=== PATIENT | female | born 1990 | race Caucasian/White ===

== ENCOUNTER 2017-01-31 16:25 | Observation (INO) | payer OTHER ==
[2017-01-31 16:33] VITALS: BMI 25.3
[2017-01-31] MEDS ORDERED: Sodium Chloride 0.9% 1,000 ML IV STA (17:16)
[2017-01-31] MEDS ORDERED: Iohexol 240 (50 ml) ONE (17:21)
[2017-01-31] MEDS ORDERED: Morphine 2 mg/ml ISec IVP STA (17:24)
--- NOTE | 2017-01-31 17:40 | ED PDOC ---
Arrival/HPI - General Chief Complaint: Abdominal Pain Time Seen by Provider: 01/31/17 16:31 Historian: Patient, Spouse - History of Present Illness Narrative History of Present Illness (Text): 01/31/17 17:15 This 27 yo female who denies pmh presents to this Emergency department complaining of RUQ and Epigastric pain x 17 days. Patient stated pain started on her RUQ. She stated she went to [facility] x 17 days ago. Patient had a negative ultrasound, and elevated LFTs. Patient was Dx. Gastritis, and discharge home. Later, patient stated she went to [facility] for same complain. This time, pain is affecting epigastric, and RUQ. Patient stated she was admitted at [facility] form 01/18/17 to 01/21/17. Patient had a negative Ultrasound, and her liver enzymes had decreased some. Patient was referred to F/U GI due to elevated LFTs, and for Epigastric pain. Patient has been taking Pepcid daily. Patient saw Dr. Isreal Brantley, GI office on 01/28/17. Patient was told to stop Pepcid, and to take Omeprazole instead. Patient was recommended to return to GI office following week to repeat LFTs blood test. However, pain got worse again, so she went back to [facility] on 01/29/2017. At this time, blood test was done, and patient was treated with GI cocktail. She was discharged home to continue with Omeprazole and to f/u GI doctor. Patient stated she did not have a CT scan or HIDA scan yet. Patient was not prescribed antiemetic medication, so she has been eating well since onset of symptoms. LMP: NOW Patient denies sob, cp, neck pain, headache, diplopia, urinary symptoms, vaginal discharge, fever, skin rash, recent travel, trauma, recent surgery, or abnormal gait. Time/Duration: Other (see hpi) Quality: Aching Context: Home Past Medical History - Provider Review Nursing Documentation Reviewed: Yes - Infectious Disease Hx of Infectious Diseases: None - Psychiatric Hx Substance Use: No - Anesthesia Hx Anesthesia: No Family/Social History - Physician Review Nursing Documentation Reviewed: Yes Family/Social History: Other (noncontributory) Smoking Status: Never Smoked Hx Alcohol Use: No Hx Substance Use: No Allergies/Home Meds Allergies/Adverse Reactions: Allergies morphine Adverse Reaction (Verified 01/31/17 16:34) NAUSEA Home Medications: Home Meds Medication Instructions Recorded Confirmed Dicyclomine [Bentyl] 1 cap PO QID 01/31/17 01/31/17 Sucralfate [Carafate] 1 g PO Q8H PRN 01/31/17 01/31/17 Review of Systems - Review of Systems Constitutional: Fatigue. absent: Weight Change, Fevers Eyes: Normal ENT: Normal. absent: Sore Throat Respiratory: Normal. absent: SOB, Cough Cardiovascular: Normal. absent: Chest Pain, Palpitations Gastrointestinal: Abdominal Pain, Nausea, Vomiting. absent: Constipation, Diarrhea Genitourinary Female: Normal. absent: Dysuria, Frequency, Hematuria Musculoskeletal: Normal. absent: Neck Pain Skin: Normal Neurological: Dizziness. absent: Headache, Focal Weakness, Gait Changes, Speech Changes, Facial Droop, Disequilibrium, Seizure Endocrine: Normal Hemo/Lymphatic: Normal Psychiatric: Normal Physical Exam Vital Signs Temp Pulse Resp BP Pulse Ox 01/31/17 19:11 84 18 117/81 98 01/31/17 16:42 97.9 F 82 18 112/76 98 Temperature: Afebrile Blood Pressure: Normal Pulse: Regular Respiratory Rate: Normal Appearance: Positive for: Well-Appearing, Non-Toxic, Comfortable Pain Distress: None Mental Status: Positive for: Alert and Oriented X 3 - Systems Exam Head: Present: Atraumatic, Normocephalic Pupils: Present: PERRL Extroacular Muscles: Present: EOMI Conjunctiva: Present: Normal Mouth: Present: Moist Mucous Membranes Pharnyx: Present: Normal. No: ERYTHEMA, EXUDATE Nose (External): Present: Atraumatic Nose (Internal): Present: Normal Inspection Neck: Present: Normal Range of Motion, Trachea Midline. No: Meningeal Signs, MIDLINE TENDERNESS, Paraspinal Tenderness, Lymphadenopathy Respiratory/Chest: Present: Clear to Auscultation, Good Air Exchange. No: Respiratory Distress, Accessory Muscle Use, Wheezes, Decreased Breath Sounds, Rales, Retracting, Rhonchi, Tachypneic Cardiovascular: Present: Regular Rate and Rhythm, Normal S1, S2. No: Murmurs Abdomen: Present: Tenderness (RUQ and Epigastric abdominal tenderness), Normal Bowel Sounds. No: Distention, Peritoneal Signs, Rebound, Guarding Back: Present: Normal Inspection. No: CVA Tenderness, Midline Tenderness, Paraspinal Tenderness, Pain with Leg Raise Upper Extremity: Present: Normal Inspection, Normal ROM, NORMAL PULSES, Neurovascularly Intact, Capillary Refill < 2s. No: Cyanosis, Edema Lower Extremity: Present: Normal Inspection, NORMAL PULSES, Normal ROM, Neurovascularly Intact, Capillary Refill < 2 s. No: Edema, CALF TENDERNESS Neurological: Present: GCS=15, CN II-XII Intact, Speech Normal, Motor Func Grossly Intact, Normal Sensory Function, Normal Cerebellar Funct, Gait Normal, Memory Normal Skin: Present: Warm, Dry, Normal Color. No: Rashes Psychiatric: Present: Alert, Oriented x 3, Normal Insight, Normal Concentration Medical Decision Making ED Course and Treatment: 01/31/17 21:37 Re-evaluation. Patient feels better, but still with symptoms. Discussed results and plan to admit with patient who expresses understanding. All questions answered and there is agreement with the plan 01/31/17 21:[address] Gerard, medical supply technician regarding history, labs, physical exam , imaging results. She stated Dr. French is next for admission service. 01/31/17 22:[address] French house doctor regarding patient history, multiple visit for same complain to different hospital, elevated LFTs, Urinalysis, reviewed CT scan and U/S result, which describes sludge in GB, mild Ileus, and partial small bowel obstruction. I told Dr. French, may has not a HIDA scan yet as per patient. Dr. French agrees with plan for observation. Re-evaluation Time: 21:37 Reassessment Condition: Re-examined, Improving,but remains with symptoms - Lab Interpretations Lab Results: 01/31/17 17:30 01/31/17 17:30 Lab Results 01/31/17 17:30: Sodium 138, Potassium 3.9, Chloride 102, Carbon Dioxide 26, Anion Gap 14, BUN 9, Creatinine 0.6 L, Est GFR ( Amer) > 60, Est GFR (Non -Af Amer) > 60, Random Glucose 83, Calcium 9.7, Total Bilirubin 1.9 H, AST 78 H , ALT 186 H, Alkaline Phosphatase 87, Total Protein 8.3, Albumin 4.8, Globulin 3.6, Albumin/Globulin Ratio 1.3, Lipase 166 01/31/17 17:30: Urine Color Light yellow, Urine Appearance Sl cloudy, Urine pH 7.5, Ur Specific [place] 1.010, Urine Protein Trace H, Urine Glucose (UA) Negative, Urine Ketones 15 H, Urine Blood Large H, Urine Nitrate Negative, Urine Bilirubin Negative, Urine Urobilinogen 0.2, Ur Leukocyte Esterase Moderate H, Urine RBC 2 - 5, Urine WBC 2 - 5, Ur Epithelial Cells 6 - 8, Urine Bacteria Few, Urine HCG, Qual Negative 01/31/17 17:30: WBC 7.7, RBC 3.94, Hgb 10.8 L, Hct 33.5 L, MCV 85.0, MCH 27.4, MCHC 32.2, RDW 13.4, Plt Count 308, MPV 10.7, Gran % 60.6, Lymph % (Auto) 33.4, [place] % (Auto) 5.3, Eos % (Auto) 0.4 L, Baso % (Auto) 0.3, Gran # 4.67, Lymph # 2.6, [place] # 0.4, Eos # 0.0, Baso # 0.02 I have reviewed the lab results: Yes Interpretation: Abnormal lab values (elevated LFTs) - RAD Interpretation Narrative RAD Interpretations (Text): 01/31/17 21:36 [facility] Division of Radiology [address] [place] [address] Tel. no. Patient Name: FARIHA CLAROS Pt. Address: [address] [place] [address] Rec #: [id number] [place] [address]: Jelly Pratt PA-C Pt Order Location: ED : 1990 Female Age: 27 Order #: [id number] Reason for exam: RUQ and Epigastric pain CT Scan ABD PELVIS PO IV CONTRAST Exam Date: 01/31/17 This imaging exam was performed at [facility] EXAM: CT Abdomen and Pelvis With Intravenous Contrast EXAM DATE/TIME: 01/31/2017 5:16 PM CLINICAL HISTORY: The patient age is 27 years old and is female; Pain; Abdominal pain; Localized; Right upper quadrant (ruq); Additional info: Ruq and epigastric pain Facility exam id and description: Ct abdpelc abd pelvis po iv contrast TECHNIQUE: Axial computed tomography images of the abdomen and pelvis with intravenous contrast. All CT scans at this facility use one or more dose reduction techniques, viz.: automated exposure control; ma/kV adjustment per patient size (including targeted exams where dose is matched to indication; i.e. head); or iterative reconstruction technique. Coronal and sagittal reformatted images were created and reviewed. CONTRAST: 100 mL of omni administered intravenously. COMPARISON: US - ABDOMEN COMPLETE 2017-01-31 18:28 FINDINGS: Lower thorax: No acute findings. ABDOMEN: Liver: There is low density identified within the medial segment of the left lobe of the liver adjacent to the falciform ligament. This is a common location for fatty infiltration. Otherwise, no hepatic mass is visualized. Gallbladder and bile ducts: No calcified stones. No ductal dilation. Pancreas: Normal contour, without acute peripancreatic stranding. Spleen: No splenomegaly. Adrenals: No mass. Kidneys and ureters: There is mild fullness of the renal collecting systems. No renal masses visualized. Stomach and bowel: Mildly dilated small bowel loops with air contrast levels are seen within the left side of the abdomen. Ileus or partial obstruction is considered. There is significant fecal material within the right hemicolon. Appendix: No findings to suggest acute appendicitis. PELVIS: Bladder: No mass. Reproductive: Posterior to the uterus, there is a loculated cystic collection of fluid measuring 6.1 x 4.9 x 4.7 cm. ABDOMEN and PELVIS: Intraperitoneal space: No free air. Bones/joints: There is a small posterior disc protrusion at L5-S1 with mild to moderate narrowing of the thecal sac. Mild disc bulging is noted at L4-5 with mild narrowing of the thecal sac. There is slight anterior wedging of the T11 vertebral body, consistent with a compression fracture. The acuity of this finding is indeterminate. Vasculature: No abdominal aortic aneurysm. Lymph nodes: No enlarged lymph nodes. IMPRESSION: 1. Posterior to the uterus, there is a loculated cystic collection of fluid measuring 6.1 x 4.9 x 4.7 cm. This can be further evaluated with ultrasound. 2. Mildly dilated small bowel loops with air contrast levels are seen within the left side of the abdomen. Ileus or partial obstruction is considered. 3. There is significant fecal material within the right hemicolon. 4. There is a small posterior disc protrusion at L5-S1 with mild to moderate narrowing of the thecal sac. Mild disc bulging is noted at L4-5 with mild narrowing of the thecal sac. 5. There is slight anterior wedging of the T11 vertebral body, consistent with a compression fracture. The acuity of this finding is indeterminate. Clinical correlation is recommended. 6. Additional CT findings described above. Dictated By: Fabricio Pack MD, MD Dictated Date/Time: 01/31/171951 Signed By: Fabricio Cleary MD Date Signed: 1949 Transcribed By: HERBERT Transcribe Date/Time : 01/31/171951 SHAVONNE/MILLICENT 01/31/17 21:37 [facility] Division of Radiology [address] [place] [address] Tel. no. Patient Name: FARIHA CLAROS Pt. Address: [address] [place] [address] Rec #: [id number] [place] [address]: Jelly Pratt PA-C Pt Order Location: ED : 1990 Female Age: 27 Order #: [id number] Reason for exam: RUQ pain Ultrasound ABDOMEN COMPLETE Exam Date: 01/31/17 This imaging exam was performed at [facility] EXAM: US Abdomen Complete EXAM DATE/TIME: 01/31/2017 6:16 PM CLINICAL HISTORY: The patient age is 27 years old and is female; Pain; Abdominal pain; Flank; Right upper quadrant (ruq); Additional info: q pain Facility exam id and description: Us abd abdomen complete TECHNIQUE: Real-time ultrasound of the abdomen (complete) with image documentation. COMPARISON: No relevant prior studies available. FINDINGS: Liver: The liver measured 12.6 x 2.3 cm. There is normal echotexture of the liver. Gallbladder: Mild isoechoic sludge is seen within the gallbladder. No discrete gallstones are visualized. No discrete gallstones are visualized. There is no significant gallbladder wall thickening. Common bile duct: The common bile duct measures 0.4 cm in diameter, which is within normal limits. Pancreas: There is suboptimal evaluation of the tail of the pancreas due to bowel gas. No focal abnormality is seen within the visualized head or body of the pancreas. Kidneys: The right kidney measures 9.4 x 4.2 x 5.3 cm. The left kidney measures 10.2 x 5.8 x 5.1 cm. No shadowing stones. No hydronephrosis. Spleen: The spleen measures 9.8 x 5.0 cm and is normal in echotexture. Aorta: Limited evaluation. Inferior vena cava: Patent, as visualized. IMPRESSION: 1. Mild isoechoic sludge is seen within the gallbladder. No discrete gallstones are visualized. 2. Additional findings described above. Dictated By: Fabricio Pack MD, MD Dictated Date/Time: 01/31/171958 Signed By: Fabricio Cleary MD Date Signed: 1956 Transcribed By: HERBERT Transcribe Date/Time : 01/31/171958 SHAVONNE/MILLICENT 01/31/17 22:12 Chest x-rays: NAD Radiology Orders: 01/31/17 17:16 ABD PELVIS PO & IV CONTRAST [CT] Stat CHEST PORTABLE [RAD] Stat 01/31/17 18:16 ABDOMEN COMPLETE [US] Stat - Medication Orders Current Medication Orders: Discontinued Medications Famotidine (Pepcid) 20 mg IVP STAT STA Stop: 01/31/17 17:17 Last Admin: 01/31/17 17:40 Dose: 20 mg IVP Administration Document 01/31/17 17:40 IT (Rec: 01/31/17 17:40 IT [id number]) Charges for Administration # of IVP Administrations 1 Sodium Chloride (Sodium Chloride 0.9%) 1,000 mls @ 1,000 mls/hr IV .Q1H STA Stop: 01/31/17 18:15 Last Admin: 01/31/17 17:40 Dose: 1,000 mls/hr eMAR Start Stop Document 01/31/17 17:40 IT (Rec: 01/31/17 17:40 IT [id number]) Intravenous Solution Start Date 01/31/17 Start Time 17:40 End Date 01/31/17 End time 18:40 Total Infusion Time 60 Morphine Sulfate (Morphine) 2 mg IVP STAT STA Stop: 01/31/17 17:25 Last Admin: 01/31/17 17:39 Dose: 2 mg MAR Pain Assessment Document 01/31/17 17:39 IT (Rec: 01/31/17 17:39 IT [id number]) Pain Reassessment Is this a pain reassessment? No Sleep Is patient sleeping during reassessment? No Presence of Pain Presence of Pain Yes Pain Scale Used Pain Scale Used Numeric Location Left, Right or Bilateral Bilateral Upper or Lower Upper Pain Location Body Site Abdomen Description Description Constant Intensity of Pain at present 8 IVP Administration Document 01/31/17 17:39 IT (Rec: 01/31/17 17:39 IT [id number]) Charges for Administration # of IVP Administrations 1 Ondansetron HCl (Zofran Inj) 4 mg IVP STAT STA Stop: 01/31/17 17:17 Last Admin: 01/31/17 17:40 Dose: 4 mg IVP Administration Document 01/31/17 17:40 IT (Rec: 01/31/17 17:40 IT [id number]) Charges for Administration # of IVP Administrations 1 Disposition/Present on Arrival - Present on Arrival Any Indicators Present on Arrival: No History of DVT/PE: No History of Uncontrolled Diabetes: No Urinary Catheter: No History of Decub. Ulcer: No History Surgical Site Infection Following: None - Disposition Have Diagnosis and Disposition been Completed?: Yes Diagnosis: Epigastric abdominal pain, Sludge in gallbladder, Ileus, unspecified, Partial small bowel obstruction Disposition: HOSPITALIZED Disposition Time: 22:14 Patient Plan: Observation Condition: STABLE Referrals: Karson Richard, [Primary Care Provider] - Follow up with primary Forms: [employer] (Serbian)
[2017-01-31 17:52] LABS: ALB/GLOB RATIO 1.3 (1.1-1.8); ALKALINE PHOSPHATASE 87 U/L (38-126); ALT/SGPT 186 U/L (7-56); AST/SGOT 78 U/L (14-36); BILIRUBIN,TOTAL 1.9 mg/dL (0.2-1.3); BLOOD UREA NITROGEN 9 mg/dL (7-21); CALCIUM 9.7 mg/dL (8.4-10.5); CARBON DIOXIDE 26 mmol/L (21-33); CHLORIDE 102 mmol/L (98-107); GFR AFRICAN-AMERICAN > 60; GLUCOSE,RANDOM 83 mg/dL (70-110); LIPASE 166 U/L (23-300); POTASSIUM 3.9 mmol/L (3.6-5.0); SODIUM 138 mmol/L (132-148); TOTAL PROTEIN 8.3 g/dL (5.8-8.3)
[2017-01-31 18:14] LABS: BASO # 0.02 K/mm3 (0.0-2.0); BASO % 0.3 % (0.0-3.0); EOS % 0.4 % (1.5-5.0); GRAN # 4.67 (1.4-6.5); GRAN % 60.6 % (50.0-68.0); HEMATOCRIT 33.5 % (36.0-48.0); LYMPH # 2.6 (1.2-3.4); LYMPH % 33.4 % (22.0-35.0); MEAN CORPUSCULAR HEMOGLOBIN 27.4 pg (25.0-35.0); MEAN CORPUSCULAR HGB CONC 32.2 g/dl (31.0-37.0); MEAN PLATELET VOLUME 10.7 fl (7.0-11.0); MONO # 0.4 (0.1-0.6); MONO % 5.3 % (1.0-6.0); PH,URINE 7.5 (4.7-8.0); RED CELL DISTRIBUTION WIDTH 13.4 % (11.5-14.5); URINE BILIRUBIN NEGATIVE (NEGATIVE); URINE BLOOD LARGE (NEGATIVE); URINE GLUCOSE (UA) NEGATIVE (NEGATIVE); URINE KETONE 15 mg/dL (NEGATIVE); URINE LEUKOCYTE ESTERASE MODERATE Leu/uL (NEGATIVE); URINE PROTEIN TRACE mg/dL (<30 mg/dL); URINE UROBILINOGEN 0.2 E.U./dL (<1 E.U./dL); WHITE BLOOD COUNT 7.7 10^3/ul (4.5-11.0)
[2017-01-31 18:16] LABS: URINE APPEARANCE SL CLOUDY (CLEAR); URINE COLOR LIGHT YELLOW (YELLOW)
[2017-01-31] MEDS ORDERED: Iohexol 350 MG/100 ML VIAL ONE (18:32)
[2017-01-31 18:34] LABS: URINE BACTERIA FEW (NEG)
--- NOTE | 2017-01-31 19:53 | CT ---
EXAM: CT Abdomen and Pelvis With Intravenous Contrast EXAM DATE/TIME: 01/31/2017 5:16 PM CLINICAL HISTORY: The patient age is 27 years old and is female; Pain; Abdominal pain; Localized; Right upper quadrant (ruq); Additional info: Ruq and epigastric pain Facility exam id and description: Ct abdpelc abd pelvis po iv contrast TECHNIQUE: Axial computed tomography images of the abdomen and pelvis with intravenous contrast. All CT scans at this facility use one or more dose reduction techniques, viz.: automated exposure control; ma/kV adjustment per patient size (including targeted exams where dose is matched to indication; i.e. head); or iterative reconstruction technique. Coronal and sagittal reformatted images were created and reviewed. CONTRAST: 100 mL of omni administered intravenously. COMPARISON: US - ABDOMEN COMPLETE 2017-01-31 18:28 FINDINGS: Lower thorax: No acute findings. ABDOMEN: Liver: There is low density identified within the medial segment of the left lobe of the liver adjacent to the falciform ligament. This is a common location for fatty infiltration. Otherwise, no hepatic mass is visualized. Gallbladder and bile ducts: No calcified stones. No ductal dilation. Pancreas: Normal contour, without acute peripancreatic stranding. Spleen: No splenomegaly. Adrenals: No mass. Kidneys and ureters: There is mild fullness of the renal collecting systems. No renal masses visualized. Stomach and bowel: Mildly dilated small bowel loops with air contrast levels are seen within the left side of the abdomen. Ileus or partial obstruction is considered. There is significant fecal material within the right hemicolon. Appendix: No findings to suggest acute appendicitis. PELVIS: Bladder: No mass. Reproductive: Posterior to the uterus, there is a loculated cystic collection of fluid measuring 6.1 x 4.9 x 4.7 cm. ABDOMEN and PELVIS: Intraperitoneal space: No free air. Bones/joints: There is a small posterior disc protrusion at L5-S1 with mild to moderate narrowing of the thecal sac. Mild disc bulging is noted at L4-5 with mild narrowing of the thecal sac. There is slight anterior wedging of the T11 vertebral body, consistent with a compression fracture. The acuity of this finding is indeterminate. Vasculature: No abdominal aortic aneurysm. Lymph nodes: No enlarged lymph nodes. IMPRESSION: 1. Posterior to the uterus, there is a loculated cystic collection of fluid measuring 6.1 x 4.9 x 4.7 cm. This can be further evaluated with ultrasound. 2. Mildly dilated small bowel loops with air contrast levels are seen within the left side of the abdomen. Ileus or partial obstruction is considered. 3. There is significant fecal material within the right hemicolon. 4. There is a small posterior disc protrusion at L5-S1 with mild to moderate narrowing of the thecal sac. Mild disc bulging is noted at L4-5 with mild narrowing of the thecal sac. 5. There is slight anterior wedging of the T11 vertebral body, consistent with a compression fracture. The acuity of this finding is indeterminate. Clinical correlation is recommended. 6. Additional CT findings described above.
--- NOTE | 2017-01-31 20:00 | US ---
EXAM: US Abdomen Complete EXAM DATE/TIME: 01/31/2017 6:16 PM CLINICAL HISTORY: The patient age is 27 years old and is female; Pain; Abdominal pain; Flank; Right upper quadrant (ruq); Additional info: [facility] pain Facility exam id and description: Us abd abdomen complete TECHNIQUE: Real-time ultrasound of the abdomen (complete) with image documentation. COMPARISON: No relevant prior studies available. FINDINGS: Liver: The liver measured 12.6 x 2.3 cm. There is normal echotexture of the liver. Gallbladder: Mild isoechoic sludge is seen within the gallbladder. No discrete gallstones are visualized. No discrete gallstones are visualized. There is no significant gallbladder wall thickening. Common bile duct: The common bile duct measures 0.4 cm in diameter, which is within normal limits. Pancreas: There is suboptimal evaluation of the tail of the pancreas due to bowel gas. No focal abnormality is seen within the visualized head or body of the pancreas. Kidneys: The right kidney measures 9.4 x 4.2 x 5.3 cm. The left kidney measures 10.2 x 5.8 x 5.1 cm. No shadowing stones. No hydronephrosis. Spleen: The spleen measures 9.8 x 5.0 cm and is normal in echotexture. Aorta: Limited evaluation. Inferior vena cava: Patent, as visualized. IMPRESSION: 1. Mild isoechoic sludge is seen within the gallbladder. No discrete gallstones are visualized. 2. Additional findings described above.
--- NOTE | 2017-01-31 22:35 | CP.PCM.HP ---
<Bryanna Castro - Last Filed: 02/01/17 00:59> History of Present Illness - History of Present Illness History of Present Illness: CC: "I'm having abdominal pain" HPI: Patient is a 27 year old female with no significant past medical history presents to the ED for intractable diffuse abdominal pain for approximately 2 1/ 2 weeks. Patient was initially evaluated at [facility] [place] at the end of December. At that time, patient was found to have elevated LFTs and a negative abdominal US. Patient was diagnosed with gastritis and discharged home. Patient was also seen at [facility] [place] [place] for the same complaint on 01/18. Patient followed up with GI outpatient, Dr. Isreal Brantley, who recommended trending LFTs and taking omeprazole. Abdominal pain got worse so she went back to [facility] [place] [place] on 01/29/17 which was the most recent hospitalization. Currently states that the abdominal pain is sharp in nature, constant with varying intensity. Prior to arrival, pain was 9/10. Pain is associated with nausea and NBNB vomiting. States that she has vomited 4-5 times since last night. Last episode of vomiting was prior to arrival. Patient states that she has been having lost of appetite and decreased PO intake. Last ate a yogurt this morning. Admits to constipation, last BM was 2 days ago. Denies sick contacts, fevers, chills, headaches, dizziness, cp, palpitations, sob, urinary symptoms, diarrhea. Allergies: NKDA (morphine - nausea) Medications: Sucrafate, Dicyclomine, Omeprazole Medical Hx: Denies Surgical Hx: Denies Social Hx: Denies alcohol, tobacco, drug use; and lives with , recently immigrated from [place] 05/2016 Family Hx: Mother - healthy; Father - healthy Present on Admission - Present on Admission Any Indicators Present on Admission: No Review of Systems - Constitutional Constitutional: Weight Loss. absent: Chills, Fever, Headache, Increased Appetite - EENT Eyes: absent: Blurred Vision, Change in Vision Ears: absent: Dizziness - Cardiovascular Cardiovascular: absent: Chest Pain, Dyspnea, Lightheadedness, Palpitations - Respiratory Respiratory: absent: Cough, Dyspnea, Wheezing - Gastrointestinal Gastrointestinal: Abdominal Pain, Constipation, Nausea, Vomiting. absent: Diarrhea - Genitourinary Genitourinary: Urinary Frequency. absent: Dysuria, Hematuria - Musculoskeletal Musculoskeletal: absent: Back Pain - Neurological Neurological: absent: Dizziness, Headaches, Weakness Past Patient History - Infectious Disease Hx of Infectious Diseases: None - Past Social History Smoking Status: Never Smoked - PSYCHIATRIC Hx Substance Use: No - SURGICAL HISTORY Hx Surgeries: No - ANESTHESIA Hx Anesthesia: No Meds Allergies/Adverse Reactions: Allergies Allergy/AdvReac Type Severity Reaction Status Date / Time morphine AdvReac NAUSEA Verified 01/31/17 16:34 Physical Exam - Constitutional Appears: Well, No Acute Distress - Head Exam Head Exam: ATRAUMATIC, NORMAL INSPECTION, NORMOCEPHALIC - Eye Exam Eye Exam: EOMI, PERRL, Scleral icterus Pupil Exam: NORMAL ACCOMODATION - ENT Exam ENT Exam: Mucous Membranes Moist - Neck Exam Neck exam: Positive for: Full Rom - Respiratory Exam Respiratory Exam: Clear to Auscultation Bilateral, NORMAL BREATHING PATTERN. absent: Rales, Rhonchi, Wheezes - Cardiovascular Exam Cardiovascular Exam: REGULAR RHYTHM, +S1, +S2 - GI/Abdominal Exam GI & Abdominal Exam: Normal Bowel Sounds, Soft, Tenderness (Mild diffuse tenderness). absent: Guarding, Rebound, Rigid Additional comments: Negative [place] - Extremities Exam Extremities exam: Positive for: normal inspection, pedal pulses present. Negative for: calf tenderness, tenderness - Back Exam Back exam: FULL ROM, NORMAL INSPECTION. absent: CVA tenderness (L), CVA tenderness (R) - Neurological Exam Neurological exam: Alert, Normal Gait, Oriented x3 - Psychiatric Exam Psychiatric exam: Normal Affect, Normal Mood - Skin Skin Exam: Dry, Normal Color, Warm Results - Vital Signs Recent Vital Signs: Last Vital Signs Temp 97.9 F 01/31/17 16:42 Pulse 84 01/31/17 19:11 Resp 18 01/31/17 19:11 BP 117/81 01/31/17 19:11 Pulse Ox 98 01/31/17 19:11 - Labs Result Diagrams: 01/31/17 17:30 01/31/17 17:30 Labs: Laboratory Results - last 24 hr 01/31/17 01/31/17 01/31/17 17:30 17:30 17:30 WBC 7.7 RBC 3.94 Hgb 10.8 L Hct 33.5 L MCV 85.0 MCH 27.4 MCHC 32.2 RDW 13.4 Plt Count 308 MPV 10.7 Gran % 60.6 Lymph % (Auto) 33.4 [place] % (Auto) 5.3 Eos % (Auto) 0.4 L Baso % (Auto) 0.3 Gran # 4.67 Lymph # 2.6 [place] # 0.4 Eos # 0.0 Baso # 0.02 Sodium 138 Potassium 3.9 Chloride 102 Carbon Dioxide 26 Anion Gap 14 BUN 9 Creatinine 0.6 L Est GFR ( Amer) > 60 Est GFR (Non-Af Amer) > 60 Random Glucose 83 Calcium 9.7 Total Bilirubin 1.9 H AST 78 H ALT 186 H Alkaline Phosphatase 87 Total Protein 8.3 Albumin 4.8 Globulin 3.6 Albumin/Globulin Ratio 1.3 Lipase 166 Urine Color Light yellow Urine Appearance Sl cloudy Urine pH 7.5 Ur Specific [place] 1.010 Urine Protein Trace H Urine Glucose (UA) Negative Urine Ketones 15 H Urine Blood Large H Urine Nitrate Negative Urine Bilirubin Negative Urine Urobilinogen 0.2 Ur Leukocyte Esterase Moderate H Urine RBC 2 - 5 Urine WBC 2 - 5 Ur Epithelial Cells 6 - 8 Urine Bacteria Few Urine HCG, Qual Negative Assessment & Plan - Assessment and Plan (Free Text) Assessment: 27 year old female with no significant past medical history presents to the ED for intractable diffuse abdominal pain for approximately 2 1/2 weeks with associated nausea and vomiting since yesterday. Plan: 1. Intractable abdominal pain with nausea/vomiting -Stable, afebrile -Place on observation -Possibly secondary to gastro-duodenal ulcers, gastritis, biliary colic, less likely acute cholecystits -Abdominal US: mild isoechoic gallbladder sludge -CT abd/pelvis: mildly dilated small bowel loops with air contrast levels; no hepatic mass visualized (see full report) -Will order HIDA scan, H pylori workup ordered -Zofran Q4H prn nausea -Pain control: Morphine 2mg q4H prn severe pain, Morphine 1mg q4H prn moderate pain -Diet: Clear liquid diet -GI consulted, f/u recommendations 2. Transaminitis -Denies alcohol use; denies excessive tylenol use -Medical records from [facility] [place] [place] reviewed at the bedside, AST/ALT were as high as 692/ 1025 -Autoimmune workup was negative, hepatitis panel negative -Patient found to have elevated iron saturation -Will repeat iron studies -LFTs are trending down -Avoid hepatotoxic agents -GI consulted, f/u recommendations 3. Constipation -CT showing significant fecal material within right hemicolon -Last BM was 2 days ago -Colace 100 mg BID -Monitor bowel function 4. Urinary Tract Infection -UA showing moderate leuk esterase -F/U urine culture -Will start Rocephin 1mg daily 5. Pelvic Cyst -CT abd/pelvis showed 6.1 x 4.9 x 4.7cm loculated cystic collection -Transvaginal US ordered -Will need outpatient follow up 6. T11 Compression fracture -Incidental finding on CT -Denies having any back pain or focal/neurological deficits -Outpatient follow up GI/DVT ppx -Protonix 40mg IVP -SCDs Plan discussed with Attending, Dr French <Moe French P - Last Filed: 02/01/17 07:00> Results - Vital Signs Recent Vital Signs: Last Vital Signs Temp 98.2 F 02/01/17 00:30 Pulse 88 02/01/17 00:30 Resp 18 02/01/17 00:30 BP 118/78 02/01/17 00:30 Pulse Ox 98 01/31/17 22:50 - Labs Result Diagrams: 01/31/17 17:30 01/31/17 17:30 Attending/Attestation - Attestation I have personally seen and examined this patient.: Yes I have fully participated in the care of the patient.: Yes I have reviewed all pertinent clinical information: Yes Notes (Text): Assessment * Dyspeptic symptoms, of epigastric, abd pain, nausea, vomiting x3 wks, with recent elevated transaminitis (1000-800)with improvement with work up done at [facility] [place], [facility] records printed and kept as hard copy in chart. W/u negative for viral, CMV, EVB, autoimmune hepatitis, elevated iron saturation 66% noted but normal ferretin. * CT abd/pelvis here showing some ileus picture, although pt not distended, pelvic cyst probably incidental, USG here showing some gb sludge but has no gb tenderness Plan * Supportive care * W/u for h pylori * Consider DD of Biliary colic, sphinter of oddi dysfunction, infections hypyli , giardia, parasites, celiac * GI consult for possible in patient vs out patient endoscopy, Hida, h pylori, celiac, pelvic, vaginal usg * See orders for detail
[2017-01-31] MEDS ORDERED: Morphine 2 mg/ml ISec IVP PRN ×2 (23:50→23:51)
[2017-02-01] MEDS: Sodium Chloride 0.9% 1,000 ML IV SCH ×2 (00:07→08:26)
[2017-02-01] MEDS ORDERED: Morphine 5 MG/ML SYRINGE IVP PRN (00:20)
[2017-02-01] MEDS: Morphine 5 MG/ML SYRINGE IVP PRN ×3 (00:24→23:54)
[2017-02-01] MEDS ORDERED: Pneumococcal 23-Valent Vaccine IM ONE (00:48)
[2017-02-01 07:43] LABS: BASO # 0.02 K/mm3 (0.0-2.0); BASO % 0.3 % (0.0-3.0); EOS # 0.1 (0.0-0.7); GRAN # 4.12 (1.4-6.5); GRAN % 52.1 % (50.0-68.0); HEMATOCRIT 30.1 % (36.0-48.0); LYMPH # 3.2 (1.2-3.4); LYMPH % 40.5 % (22.0-35.0); MEAN CELL VOLUME 86.2 fl (80.0-105.0); MEAN CORPUSCULAR HEMOGLOBIN 27.5 pg (25.0-35.0); MEAN CORPUSCULAR HGB CONC 31.9 g/dl (31.0-37.0); MEAN PLATELET VOLUME 11.9 fl (7.0-11.0); MONO # 0.5 (0.1-0.6); MONO % 6.1 % (1.0-6.0); RED CELL DISTRIBUTION WIDTH 13.8 % (11.5-14.5); WHITE BLOOD COUNT 7.9 10^3/ul (4.5-11.0)
[2017-02-01 08:11] LABS: ALB/GLOB RATIO 1.3 (1.1-1.8); ALKALINE PHOSPHATASE 68 U/L (38-126); ALT/SGPT 146 U/L (7-56); AST/SGOT 62 U/L (14-36); BILIRUBIN,TOTAL 1.6 mg/dL (0.2-1.3); BLOOD UREA NITROGEN 7 mg/dL (7-21); CALCIUM 8.3 mg/dL (8.4-10.5); CARBON DIOXIDE 23 mmol/L (21-33); CHLORIDE 108 mmol/L (98-107); GFR AFRICAN-AMERICAN > 60; GLUCOSE,RANDOM 67 mg/dL (70-110); POTASSIUM 3.7 mmol/L (3.6-5.0); SODIUM 138 mmol/L (132-148); TOTAL PROTEIN 6.8 g/dL (5.8-8.3)
[2017-02-01 08:21] LABS: IRON 76 ug/dL (45-180)
--- NOTE | 2017-02-01 08:36 | RAD ---
HISTORY: epigastric pain COMPARISON: No prior. FINDINGS: LUNGS: No active pulmonary disease. PLEURA: No significant pleural effusion identified, no pneumothorax apparent. CARDIOVASCULAR: Normal. OSSEOUS STRUCTURES: No significant abnormalities. VISUALIZED UPPER ABDOMEN: Normal. OTHER FINDINGS: None. IMPRESSION: No active disease.
[2017-02-01] MEDS ORDERED: cefTRIAXone 1 gm 1 GM/100 ML BAG IVPB SCH (10:00)
--- NOTE | 2017-02-01 10:12 | CARD ---
APPROVED REPORT EKG Measurement Heart [id number] VT [id number] [id number] <Conclusion> Normal sinus rhythm Normal ECG
[2017-02-01] MEDS: POLYETHYLENE GLYCOL 3350 17 GM/Dose PACKET PO SCH ×3 (11:46→17:45)
[2017-02-01] MEDS ORDERED: Gadodiamide 287 MG/ML VIAL (15ML) IV ONE (12:37)
--- NOTE | 2017-02-01 13:34 | CP.PCM.PN ---
<Alfonso Jacobo - Last Filed: 02/01/17 14:06> Subjective - Date & Time of Evaluation Date of Evaluation: 02/01/17 Time of Evaluation: 13:20 - Subjective Subjective: Medicine Progress Note: Pt seen and examined at bedside. Pt states that she still feels nauseous, but did not vomit overnight. Pt states that generalized abdominal pain is still present, greatest in the epigastric region. Pt denied CP, SOB, fever, chills, CALDWELL , dizziness, and dysuria. Objective - Vital Signs/Intake and Output Vital Signs (last 24 hours): Temp Pulse Resp BP Pulse Ox 97.8 F 84 20 108/67 98 02/01/17 07:30 02/01/17 07:30 02/01/17 07:30 02/01/17 07:30 02/01/17 07:30 - Medications Medications: Current Medications Famotidine (Pepcid) 20 mg IVP HS [facility] Sodium Chloride (Sodium Chloride 0.9%) 1,000 mls @ 125 mls/hr IV .Q8H [facility] Last Admin: 02/01/17 08:26 Dose: 125 mls/hr Metoclopramide HCl (Reglan) 5 mg IVP ACHS [facility] Last Admin: 02/01/17 11:45 Dose: 5 mg Morphine Sulfate (Morphine) 2 mg IVP Q4H PRN PRN Reason: Pain, severe (8-10) Last Admin: 02/01/17 06:23 Dose: 2 mg Morphine Sulfate (Morphine) 1 mg IVP Q4H PRN PRN Reason: Pain, moderate (4-7) Last Admin: 02/01/17 00:24 Dose: 1 mg Ondansetron HCl (Zofran Inj) 4 mg IVP Q4H PRN PRN Reason: Nausea/Vomiting Last Admin: 02/01/17 07:03 Dose: 4 mg Pantoprazole Sodium (Protonix Inj) 40 mg IVP DAILY [facility] Last Admin: 02/01/17 10:31 Dose: 40 mg Polyethylene Glycol (Miralax) 17 gm PO BID [facility] Last Admin: 02/01/17 11:46 Dose: 17 gm Sucralfate (Carafate Oral Susp) 1 gm PO 0630,1130,1630,2200 [facility] - Head Exam Head Exam: ATRAUMATIC, NORMOCEPHALIC - Eye Exam Eye Exam: EOMI, PERRL - ENT Exam ENT Exam: Mucous Membranes Moist - Neck Exam Neck Exam: Full ROM. absent: Lymphadenopathy, Tenderness, Thyromegaly - Respiratory Exam Respiratory Exam: Clear to Ausculation Bilateral. absent: Decreased Breath Sounds, Rales, Rhonchi, Wheezes, Respiratory Distress - Cardiovascular Exam Cardiovascular Exam: RRR, +S1, +S2. absent: Diastolic murmur, Gallop, Rubs, Murmur - GI/Abdominal Exam GI & Abdominal Exam: Soft, Tenderness (diffuse, greatest in epigastric region). absent: Distended, Firm, Guarding, Mass, Rebound - Extremities Exam Extremities Exam: Normal Inspection - Back Exam Back Exam: NORMAL INSPECTION - Neurological Exam Neurological Exam: Alert, Awake, Oriented x3 - Psychiatric Exam Psychiatric exam: Normal Affect, Normal Mood - Skin Skin Exam: Dry, Intact, Normal Color, Warm Assessment and Plan - Assessment and Plan (Free Text) Assessment: 27 year old female with no significant past medical history presents to the ED for intractable diffuse abdominal pain for approximately 2 1/2 weeks with associated nausea and vomiting since yesterday. Plan: 1. Intractable abdominal pain with nausea/vomiting -Stable, afebrile -Possibly secondary to gastro-duodenal ulcers, gastritis, biliary colic, less likely acute cholecystits -Abdominal US: mild isoechoic gallbladder sludge -CT abd/pelvis: mildly dilated small bowel loops with air contrast levels; no hepatic mass visualized (see full report) -Zofran Q4H prn nausea -Pain control: Morphine 2mg q4H prn severe pain, Morphine 1mg q4H prn moderate pain -NPO, IVF, advance diet as tolerated -F/u H pylori -GI consulted Elevated LFT's possible due to minocycline use PPI, carafate, pepcid F/u MRCP 2. Transaminitis -Denies alcohol use; denies excessive tylenol use -Medical records from [facility] [place] reviewed at the bedside, AST/ALT were as high as 692/ 1025 Autoimmune workup was negative, hepatitis panel negative -Will repeat hepatitis panel -Fe WNL, TIBC low -LFTs are trending down -Avoid hepatotoxic agents -GI consulted, f/u recommendations 3. Constipation -CT showing significant fecal material within right hemicolon -Last BM was 2 days ago -Miralax -Monitor bowel function 4. Pelvic Cyst -CT abd/pelvis showed 6.1 x 4.9 x 4.7cm loculated cystic collection -Transvaginal US ordered -Will need outpatient follow up 5. T11 Compression fracture -Incidental finding on CT -Denies having any back pain or focal/neurological deficits -Outpatient follow up GI/DVT ppx -Protonix -SCDs Pt seen and discussed in detail with Dr. Chatman. Jose Jacobo, PGY1 <Chandana Chatman - Last Filed: 02/01/17 14:50> Objective - Vital Signs/Intake and Output Vital Signs (last 24 hours): Temp Pulse Resp BP Pulse Ox 97.8 F 84 20 108/67 98 02/01/17 07:30 02/01/17 07:30 02/01/17 07:30 02/01/17 07:30 02/01/17 07:30 - Medications Medications: Current Medications Famotidine (Pepcid) 20 mg IVP HS [facility] Sodium Chloride (Sodium Chloride 0.9%) 1,000 mls @ 125 mls/hr IV .Q8H [facility] Last Admin: 02/01/17 08:26 Dose: 125 mls/hr Metoclopramide HCl (Reglan) 5 mg IVP ACHS [facility] Last Admin: 02/01/17 11:45 Dose: 5 mg Morphine Sulfate (Morphine) 2 mg IVP Q4H PRN PRN Reason: Pain, severe (8-10) Last Admin: 02/01/17 06:23 Dose: 2 mg Morphine Sulfate (Morphine) 1 mg IVP Q4H PRN PRN Reason: Pain, moderate (4-7) Last Admin: 02/01/17 00:24 Dose: 1 mg Ondansetron HCl (Zofran Inj) 4 mg IVP Q4H PRN PRN Reason: Nausea/Vomiting Last Admin: 02/01/17 07:03 Dose: 4 mg Pantoprazole Sodium (Protonix Inj) 40 mg IVP DAILY [facility] Last Admin: 02/01/17 10:31 Dose: 40 mg Polyethylene Glycol (Miralax) 17 gm PO BID [facility] Last Admin: 02/01/17 11:46 Dose: 17 gm Sucralfate (Carafate Oral Susp) 1 gm PO 0630,1130,1630,2200 [facility] Attending/Attestation - Attestation I have personally seen and examined this patient.: Yes I have fully participated in the care of the patient.: Yes I have reviewed all pertinent clinical information, including history, physical exam and plan: Yes Notes (Text): 02/01/17 14:44 27 year old female who presented with complaint of abdominal pain with nausea/ vomiting. She reports she had these symptoms for the past 2-3 weeks. Workup at [facility] [place] and [facility] [place] revealed elevated LFTs (~500s-1000s). CT abd/pelvis and US abdomen were reviewed. LFTs are trending down. Case was discussed with GI; suspect drug induced transaminitis +/- gastritis. She is on protonix and pepcid and carafate is also added. Continue with iv fluids and zofran prn. Avoid NSAIDs. MRCP was reviewed. Pelvis sonogram is pending. UA positive for LE however Ucx is negative. Will continue with liquid diet today and advance possibly tomorrow as tolerated. Chandana Chatman MD Hospitalist.
--- NOTE | 2017-02-01 14:10 | MRI ---
PROCEDURE: Magnetic Resonance Cholangiopancreatography HISTORY: Right upper quadrant and epigastric pain COMPARISON: Comparison is made to the previous CT and ultrasound of the abdomen dated 01/31/2017. TECHNIQUE: Multiplanar, multisequence MR images of the abdomen were obtained, including heavily T2 weighted MRCP images of the biliary system. Rotating maximum intensity projection images of the biliary system were generated. FINDINGS: MRCP: The common bile duct is of a normal caliber. No evidence of choledocholithiasis. No intrahepatic biliary ductal dilatation. LIVER: Unremarkable. GALLBLADDER: Unremarkable. SPLEEN: Unremarkable. PANCREAS: Unremarkable. ADRENALS: Unremarkable. KIDNEYS: Unremarkable. AORTA: No aneurysm. ASCITES: None. OTHER FINDINGS: Mild constipation is noted. IMPRESSION: No evidence of cholelithiasis or cholecystitis. No evidence of choledocholithiasis or biliary tree obstruction. No evidence of acute pathology in the upper abdomen. Mild constipation.
--- NOTE | 2017-02-01 15:14 | CP.PCM.CON ---
<Sehrry Lozano - Last Filed: 02/01/17 15:19> History of Present Illness - History of Present Illness History of Present Illness: PGY4 Initial GI Consult Cedric Quach is a 27F w/ no sig medical history who presents to the ER with reports of abdominal pain, nausea, vomiting, and elevated LFTS. was at bedside and helped translate. As per pt and her , she has been having symptoms of abd pain, nausea, vomiting for at at least 3months. She had recently immigrated to [facility] in May. She states that she had no symptoms in [place]. Though she notes that she had intermittent constipation for years. She states that her symptoms started 2 months ago with severe abd pain in epigastric area and sometimes in the lower quadrants B/L. She notes that she eventually [place] [facility] [place] end of [place]. At that time, patient was found to have elevated LFTs and a negative abdominal US. As per labs, ALT > 1000 and AST >700. Patient was diagnosed with gastritis and discharged home. Patient was also seen at [facility] [place] the same complaint on 01/18. Patient followed up with GI outpatient, Dr. Isreal Brantley, who recommended trending LFTs and taking omeprazole. Abdominal pain got worse so she went back to [facility] on 01/29/17 which was the most recent hospitalization. Currently states that the abdominal pain is sharp in nature, constant with varying intensity. Prior to arrival, pain was 9/10. Pain is associated with nausea and NBNB vomiting. States that she has vomited 4-5 times since last night. Last episode of vomiting was prior to arrival. Patient states that she has been having lost of appetite and decreased PO intake. Admits to constipation, last BM was 2 days ago. As per paperwork brought by her , she is Hep Immunized and ANDERSON 1:80 and rest of the autoimmune work up was negative. She reports taking minocycline and Vit A derivative ointment for her acne for 4 weeks in August. Pt was given rocephin x [address] dose [address] ER[address] CT abd revealed sig stool in the right side of the colon and possible retrouterine fluid collection. She was also started on zofran and PPI, but despite this, she is still experiencing nausea, vomiting, and abd pain. Medical Hx: Denies Surgical Hx: Denies Social Hx: Denies alcohol, tobacco, drug use; and lives with , recently immigrated from [place] 05/2016 Family Hx: Mother - healthy; Father - healthy Endoscopy hx: none ROS: 12 point ROS conducted, other than above, otherwise neg. Past Patient History - Infectious Disease Hx of Infectious Diseases: None - Past Social History Smoking Status: Never Smoked - MUSCULOSKELETAL/RHEUMATOLOGICAL Hx Falls: No - PSYCHIATRIC Hx Substance Use: No - SURGICAL HISTORY Hx Surgeries: No - ANESTHESIA Hx Anesthesia: No Meds Allergies/Adverse Reactions: Allergies Allergy/AdvReac Type Severity Reaction Status Date / Time No Known Allergies Allergy Verified 02/01/17 07:43 - Medications Medications: Current Medications Famotidine (Pepcid) 20 mg IVP HS [facility] Sodium Chloride (Sodium Chloride 0.9%) 1,000 mls @ 125 mls/hr IV .Q8H [facility] Last Admin: 02/01/17 08:26 Dose: 125 mls/hr Metoclopramide HCl (Reglan) 5 mg IVP ACHS [facility] Last Admin: 02/01/17 11:45 Dose: 5 mg Morphine Sulfate (Morphine) 2 mg IVP Q4H PRN PRN Reason: Pain, severe (8-10) Last Admin: 02/01/17 06:23 Dose: 2 mg Morphine Sulfate (Morphine) 1 mg IVP Q4H PRN PRN Reason: Pain, moderate (4-7) Last Admin: 02/01/17 00:24 Dose: 1 mg Ondansetron HCl (Zofran Inj) 4 mg IVP Q4H PRN PRN Reason: Nausea/Vomiting Last Admin: 02/01/17 07:03 Dose: 4 mg Pantoprazole Sodium (Protonix Inj) 40 mg IVP DAILY [facility] Last Admin: 02/01/17 10:31 Dose: 40 mg Polyethylene Glycol (Miralax) 17 gm PO BID [facility] Last Admin: 02/01/17 11:46 Dose: 17 gm Sucralfate (Carafate Oral Susp) 1 gm PO 0630,1130,1630,2200 [facility] Physical Exam - Constitutional Appears: In Acute Distress - Head Exam Head Exam: ATRAUMATIC, NORMOCEPHALIC - Eye Exam Eye Exam: Normal appearance - ENT Exam ENT Exam: Mucous Membranes Moist - Respiratory Exam Respiratory Exam: Clear to Auscultation Bilateral, NORMAL BREATHING PATTERN. absent: Rales, Rhonchi, Wheezes, Respiratory Distress - Cardiovascular Exam Cardiovascular Exam: REGULAR RHYTHM, +S1, +S2 - GI/Abdominal Exam GI & Abdominal Exam: Hypoactive Bowel Sounds, Soft, Tenderness. absent: Distended, Guarding, Rebound, Rigid Additional comments: eoigastric and RLQ - Extremities Exam Extremities exam: Negative for: joint swelling, pedal edema - Neurological Exam Neurological exam: Alert, Oriented x3 - Psychiatric Exam Psychiatric exam: Normal Affect, Normal Mood - Skin Skin Exam: Dry, Intact, Normal Color, Warm Results - Vital Signs Recent Vital Signs: Last Vital Signs Temp 97.8 F 02/01/17 07:30 Pulse 84 02/01/17 07:30 Resp 20 02/01/17 07:30 BP 108/67 02/01/17 07:30 Pulse Ox 98 02/01/17 07:30 - Labs Result Diagrams: 02/01/17 07:00 02/01/17 07:00 Assessment & Plan - Assessment and Plan (Free Text) Assessment: Cedric Quach is a 27F w/ hx of intermittent constipation who presents with abdominal pain, nausea, vomiting, and elevated LFTS. Etiology of the epigastric pain can include gastritis vs PUD vs esophagitis. Etiology of the abdominal pain is likely 2/2 constipation. Elevated LFTs are likely 2/2 minocycline, autoimmune and infectous etiologies previously ruled out 1. Abd pain DDx: gastritis vs PUD vs esophagitis vs constipation 2. Elevated LFTs, likely 2/2 prolonged minocyline use 3. Acute on chronic constipation Plan: -start miralax BID -dulcolax PRN -zofran PRN -start reglan TID -start carafate suspension QID -H. Pylori Stool antigen -continue protonix 40mg daily -LFTs trending down as per previous oupt labs -would hold on abx for now -CT abd reviewed -recommend MRCP D/W Dr. Gayle <Cristel Gayle MD - Last Filed: 02/01/17 18:49> Meds - Medications Medications: Current Medications Famotidine (Pepcid) 20 mg IVP HS [facility] Sodium Chloride (Sodium Chloride 0.9%) 1,000 mls @ 125 mls/hr IV .Q8H [facility] Last Admin: 02/01/17 08:26 Dose: 125 mls/hr Metoclopramide HCl (Reglan) 5 mg IVP ACHS [facility] Last Admin: 02/01/17 17:46 Dose: 5 mg Morphine Sulfate (Morphine) 2 mg IVP Q4H PRN PRN Reason: Pain, severe (8-10) Last Admin: 02/01/17 06:23 Dose: 2 mg Morphine Sulfate (Morphine) 1 mg IVP Q4H PRN PRN Reason: Pain, moderate (4-7) Last Admin: 02/01/17 16:01 Dose: 1 mg Ondansetron HCl (Zofran Inj) 4 mg IVP Q4H PRN PRN Reason: Nausea/Vomiting Last Admin: 02/01/17 07:03 Dose: 4 mg Pantoprazole Sodium (Protonix Inj) 40 mg IVP DAILY [facility] Last Admin: 02/01/17 10:31 Dose: 40 mg Polyethylene Glycol (Miralax) 17 gm PO BID [facility] Last Admin: 02/01/17 17:45 Dose: 17 gm Sucralfate (Carafate Oral Susp) 1 gm PO 0630,1130,1630,2200 [facility] Last Admin: 02/01/17 17:46 Dose: 1 gm Results - Vital Signs Recent Vital Signs: Last Vital Signs Temp 97.8 F 02/01/17 07:30 Pulse 84 02/01/17 07:30 Resp 20 02/01/17 07:30 BP 108/67 02/01/17 07:30 Pulse Ox 98 02/01/17 07:30 - Labs Result Diagrams: 02/01/17 07:00 02/01/17 07:00 Attending/Attestation - Attestation I have personally seen and examined this patient.: Yes I have fully participated in the care of the patient.: Yes I have reviewed all pertinent clinical information: Yes Notes (Text): 02/01/17 18:38 Patient seen with GI fellow in am. This is a 27 yr old F with history of intermittent constipation who presents with abdominal pain, nausea, vomiting, and elevated LFTS. She was treated with minocycline po for a month in late summer nad presented to outside hospital with ALT/AST of 1000/800 with increased indirect bilirubin. Her hepatitis serologies and auto immune serologies were negative except ANDERSON + Her LFT are down trending and sonogram shows GB sludge and normal bile ducts. CT scan shows fluid in pelvis for which transvaginal sonogram is pending. Etiology of the epigastric pain can include gastritis vs PUD vs esophagitis. Etiology of the abdominal pain is likely constipation. Will start strict bowel regimen and add PPI in am on empty stomach and carafate. Start prokinetic reglan for nausea. Hold on antibiotics and hepato toxic medications
--- NOTE | 2017-02-01 16:55 | US ---
HISTORY: eval pelvic cyst COMPARISON: None available. TECHNIQUE: Transabdominal ultrasound examination of the pelvis. Patient refused the TV exam. FINDINGS: UTERUS: Measures 7.2 x 2.8 x 3.6 cm. Normal in size and appearance. No fibroid or other mass lesion seen. ENDOMETRIUM: Measures 4 mm in diameter. Unremarkable. CERVIX: No cervical abnormality identified. RIGHT OVARY: Measures 3.4 x 1.4 x 1.7 cm. No solid mass. Normal flow. LEFT OVARY: Measures 6.7 x 4.3 x 5.55 cm. There is a complex cystic lesion at the left adnexa measures 6 x 4 x 5.2 centimeter Normal flow. FREE FLUID: No significant free fluid noted. OTHER FINDINGS: None. IMPRESSION: Complex cystic lesion at the left adnexa measures 6 centimeter. No ultrasound evidence of ovarian torsion. .Close follow-up reassessment of the left adnexal lesion is suggested.
[2017-02-01] MEDS: Sucralfate 1 gm/10 ml Oral Susp UD PO SCH ×2 (17:46→21:18)
[2017-02-02] MEDS: Sucralfate 1 gm/10 ml Oral Susp UD PO SCH ×2 (06:16→12:13)
[2017-02-02] MEDS: Sodium Chloride 0.9% 1,000 ML IV SCH (06:48)
[2017-02-02 07:27] VITALS: BP 106/74; PULSE 74; RESP 20; TEMP 98; O2SAT 98
[2017-02-02 07:45] LABS: BASO # 0.01 K/mm3 (0.0-2.0); BASO % 0.2 % (0.0-3.0); EOS # 0.1 (0.0-0.7); EOS % 1.1 % (1.5-5.0); GRAN # 3.73 (1.4-6.5); GRAN % 58.3 % (50.0-68.0); HEMATOCRIT 30.5 % (36.0-48.0); LYMPH # 2.1 (1.2-3.4); LYMPH % 33.5 % (22.0-35.0); MEAN CELL VOLUME 85.4 fl (80.0-105.0); MEAN CORPUSCULAR HEMOGLOBIN 27.2 pg (25.0-35.0); MEAN CORPUSCULAR HGB CONC 31.8 g/dl (31.0-37.0); MEAN PLATELET VOLUME 10.6 fl (7.0-11.0); MONO # 0.4 (0.1-0.6); MONO % 6.9 % (1.0-6.0); RED CELL DISTRIBUTION WIDTH 13.5 % (11.5-14.5); WHITE BLOOD COUNT 6.4 10^3/ul (4.5-11.0)
[2017-02-02 07:52] LABS: INR 1.18 (0.93-1.08)
[2017-02-02 07:54] LABS: ALB/GLOB RATIO 1.3 (1.1-1.8); ALKALINE PHOSPHATASE 67 U/L (38-126); ALT/SGPT 131 U/L (7-56); AST/SGOT 64 U/L (14-36); BILIRUBIN,TOTAL 1.5 mg/dL (0.2-1.3); BLOOD UREA NITROGEN 5 mg/dL (7-21); CALCIUM 8.3 mg/dL (8.4-10.5); CARBON DIOXIDE 27 mmol/L (21-33); CHLORIDE 107 mmol/L (98-107); GFR AFRICAN-AMERICAN > 60; GLUCOSE,RANDOM 76 mg/dL (70-110); POTASSIUM 3.4 mmol/L (3.6-5.0); SODIUM 140 mmol/L (132-148); TOTAL PROTEIN 6.7 g/dL (5.8-8.3)
[2017-02-02] MEDS ORDERED: Morphine 2 mg/ml ISec IVP PRN (10:25)
[2017-02-02] MEDS: POLYETHYLENE GLYCOL 3350 17 GM/Dose PACKET PO SCH (11:02)
--- NOTE | 2017-02-02 12:44 | CP.PCM.PN ---
<Sherry Lozano - Last Filed: 02/02/17 12:50> Subjective - Date & Time of Evaluation Date of Evaluation: 02/02/17 Time of Evaluation: 06:00 - Subjective Subjective: PGY4 GI Follow-up Pt seen and examined bedside early in the AM She reports sig improvement in abd pain +flatus, but denies any BM She states that she also has interval improvement in epigastric pain Wants to advance her diet ROS: 10 point ROS conducted, neg other than above Objective - Vital Signs/Intake and Output Vital Signs (last 24 hours): Temp Pulse Resp BP Pulse Ox 98.0 F 74 20 106/74 98 02/02/17 07:27 02/02/17 07:27 02/02/17 07:27 02/02/17 07:27 02/02/17 07:27 Intake and Output: 02/02/17 02/02/17 06:59 18:59 Intake Total 1550 Balance 1550 - Medications Medications: Current Medications Famotidine (Pepcid) 20 mg IVP HS [facility] Last Admin: 02/01/17 21:18 Dose: 20 mg Sodium Chloride (Sodium Chloride 0.9%) 1,000 mls @ 125 mls/hr IV .Q8H [facility] Last Admin: 02/02/17 06:48 Dose: 125 mls/hr Metoclopramide HCl (Reglan) 5 mg IVP ACHS [facility] Last Admin: 02/02/17 12:13 Dose: 5 mg Morphine Sulfate (Morphine) 1 mg IVP Q6H PRN PRN Reason: Pain, severe (8-10) Ondansetron HCl (Zofran Inj) 4 mg IVP Q4H PRN PRN Reason: Nausea/Vomiting Last Admin: 02/01/17 07:03 Dose: 4 mg Pantoprazole Sodium (Protonix Inj) 40 mg IVP DAILY [facility] Last Admin: 02/02/17 11:02 Dose: 40 mg Polyethylene Glycol (Miralax) 17 gm PO BID [facility] Last Admin: 02/02/17 11:02 Dose: 17 gm Sucralfate (Carafate Oral Susp) 1 gm PO 0630,1130,1630,2200 [facility] Last Admin: 02/02/17 12:13 Dose: 1 gm - Labs Labs: 02/02/17 07:20 02/02/17 07:20 PT 13.0 SECONDS (9.4-12.5) H 02/02/17 07:20 INR 1.18 (0.93-1.08) H 02/02/17 07:20 - Constitutional Appears: Well, No Acute Distress - Head Exam Head Exam: ATRAUMATIC, NORMOCEPHALIC - Eye Exam Eye Exam: Normal appearance - ENT Exam ENT Exam: Mucous Membranes Moist - Respiratory Exam Respiratory Exam: Clear to Ausculation Bilateral, Respiratory Distress, NORMAL BREATHING PATTERN. absent: Rales, Rhonchi, Wheezes - Cardiovascular Exam Cardiovascular Exam: REGULAR RHYTHM, +S1, +S2 - GI/Abdominal Exam GI & Abdominal Exam: Soft, Normal Bowel Sounds. absent: Firm, Guarding, Rigid, Tenderness, Organomegaly - Extremities Exam Extremities Exam: absent: Joint Swelling, Pedal Edema - Neurological Exam Neurological Exam: Alert, Awake, Oriented x3 - Psychiatric Exam Psychiatric exam: Normal Affect, Normal Mood - Skin Skin Exam: Dry, Intact, Normal Color, Warm Assessment and Plan - Assessment and Plan (Free Text) Assessment: Cedric Quach is a 27F w/ hx of intermittent constipation who presents with abdominal pain, nausea, vomiting, and elevated LFTS. Etiology of the epigastric pain can include gastritis vs PUD vs esophagitis. Etiology of the abdominal pain is likely 2/2 constipation. Elevated LFTs are likely 2/2 minocycline, autoimmune and infectous etiologies previously ruled out 1. Abd pain DDx: gastritis vs PUD vs esophagitis vs constipation 2. Elevated LFTs, likely 2/2 prolonged minocyline use 3. Acute on chronic constipation 4. Complex 6cm ovarian cyst Plan: -continue miralax BID up to TID, recommend continue the as as an outpt can titrate from once daily to TID for at least 1-2 BM daily -dulcolax PRN -Continue reglan TID while inpt -continue carafate suspension QID and as an oupt -H. Pylori Stool antigen, waiting for specimen -continue protonix 40mg BID, can transition to daily Po 40mg Protonix or omeprazole -LFTs trending down as per previous oupt labs, will order addition labs to differential between autoimmune hepatitis vs minocycline inducted autoimmune hepatitis -complex ovarian cyst noted on pelvis U/S, recommend f/u with [facility] as oupt -CT abd reviewed -MRCP reviewed: no avute liver or biliary finding -if symtoms improve today and can tolerate diet, okay to discharge from GI standpoint, pt want to follow-up with Dr. Gayle -if symtoms worsen or continue dispite the above mentioned recommendation, will consider EGD tomorrow D/W [facility]. Gayle <[facility] Last Filed: 02/02/17 15:41> Objective - Vital Signs/Intake and Output Vital Signs (last 24 hours): Temp Pulse Resp BP Pulse Ox 98.0 F 74 20 106/74 98 02/02/17 07:27 02/02/17 07:27 02/02/17 07:27 02/02/17 07:27 02/02/17 07:27 Intake and Output: 02/02/17 02/02/17 06:59 18:59 Intake Total 1550 Balance 1550 - Labs Labs: 02/02/17 07:20 02/02/17 07:20 PT 13.0 SECONDS (9.4-12.5) H 02/02/17 07:20 INR 1.18 (0.93-1.08) H 02/02/17 07:20 Attending/Attestation - Attestation I have personally seen and examined this patient.: Yes I have fully participated in the care of the patient.: Yes I have reviewed all pertinent clinical information, including history, physical exam and plan: Yes Notes (Text): 02/02/17 15:34 Patient seen with GI fellow early am. This is a 27 yr old F with history of intermittent constipation who presents with abdominal pain, nausea, vomiting, and elevated LFTS. She was treated with minocycline po for a month in late summer and presented to outside hospital with ALT/AST of 1000/800 with increased indirect bilirubin. Her hepatitis serologies and auto immune serologies were negative except ANDERSON + Her LFT are down trending and sonogram shows GB sludge and normal bile ducts. CT scan shows fluid in pelvis and abdominal sonogram shows complex cystic left adnexal 6 cm lesion. Discussed with patient and in their ethnic language to have close outpatient follow up with Obgyn within one week of discharge. Name of obgyn given- Dr Alexandria Lozano. Etiology of the epigastric pain can include gastritis vs PUD vs esophagitis. Etiology of the abdominal pain is likely constipation. On strict bowel regimen and added PPI in am on empty stomach and carafate tid. Start prokinetic reglan for nausea. Hold on antibiotics and hepato toxic medications. As GI symptoms have improved and LFT downtrending can be discharged
--- NOTE | 2017-02-02 15:10 | CP.PCM.DIS ---
<Alfonso Jacobo - Last Filed: 02/02/17 14:41> Provider - Provider Date of Admission: 02/01/17 10:47 Attending physician: Chandana Chatman MD Primary care physician: Karson Profile Required Consults: GI: Irwin Time Spent in preparation of Discharge (in minutes): 45 Hospital Course - Lab Results Lab Results: Most Recent Lab Values WBC 6.4 10^3/ul (4.5-11.0) 02/02/17 07:20 RBC 3.57 10^6/uL (3.5-6.1) 02/02/17 07:20 Hgb 9.7 g/dL (12.0-16.0) L 02/02/17 07:20 Hct 30.5 % (36.0-48.0) L 02/02/17 07:20 MCV 85.4 fl (80.0-105.0) 02/02/17 07:20 MCH 27.2 pg (25.0-35.0) 02/02/17 07:20 MCHC 31.8 g/dl (31.0-37.0) 02/02/17 07:20 RDW 13.5 % (11.5-14.5) 02/02/17 07:20 Plt Count 283 10^3/uL (120.0-450.0) 02/02/17 07:20 MPV 10.6 fl (7.0-11.0) 02/02/17 07:20 Gran % 58.3 % (50.0-68.0) 02/02/17 07:20 Lymph % (Auto) 33.5 % (22.0-35.0) 02/02/17 07:20 Mower % (Auto) 6.9 % (1.0-6.0) H 02/02/17 07:20 Eos % (Auto) 1.1 % (1.5-5.0) L 02/02/17 07:20 Baso % (Auto) 0.2 % (0.0-3.0) 02/02/17 07:20 Gran # 3.73 (1.4-6.5) 02/02/17 07:20 Lymph # 2.1 (1.2-3.4) 02/02/17 07:20 Mower # 0.4 (0.1-0.6) 02/02/17 07:20 Eos # 0.1 (0.0-0.7) 02/02/17 07:20 Baso # 0.01 K/mm3 (0.0-2.0) 02/02/17 07:20 PT 13.0 SECONDS (9.4-12.5) H 02/02/17 07:20 INR 1.18 (0.93-1.08) H 02/02/17 07:20 Sodium 140 mmol/L (132-148) 02/02/17 07:20 Potassium 3.4 mmol/L (3.6-5.0) L 02/02/17 07:20 Chloride 107 mmol/L (98-107) 02/02/17 07:20 Carbon Dioxide 27 mmol/L (21-33) 02/02/17 07:20 Anion Gap 9 (10-20) L 02/02/17 07:20 BUN 5 mg/dL (7-21) L 02/02/17 07:20 Creatinine 0.5 mg/dL (0.7-1.2) L 02/02/17 07:20 Est GFR ( Amer) > 60 02/02/17 07:20 Est GFR (Non-Af Amer) > 60 02/02/17 07:20 Random Glucose 76 mg/dL (70-110) 02/02/17 07:20 Calcium 8.3 mg/dL (8.4-10.5) L 02/02/17 07:20 Iron 76 ug/dL (45-180) 02/01/17 07:00 TIBC 227 ug/dL (265-497) L 02/01/17 07:00 % Saturation 34 % (20-55) 02/01/17 07:00 Ferritin 73.1 ng/mL 02/01/17 07:00 Total Bilirubin 1.5 mg/dL (0.2-1.3) H 02/02/17 07:20 GGT 67 U/L (8-78) 02/02/17 07:20 AST 64 U/L (14-36) H 02/02/17 07:20 ALT 131 U/L (7-56) H 02/02/17 07:20 Alkaline Phosphatase 67 U/L (38-126) 02/02/17 07:20 Total Protein 6.7 g/dL (5.8-8.3) 02/02/17 07:20 Albumin 3.8 g/dL (3.0-4.8) 02/02/17 07:20 Globulin 3.0 gm/dL 02/02/17 07:20 Albumin/Globulin Ratio 1.3 (1.1-1.8) 02/02/17 07:20 Lipase 166 U/L (23-300) 01/31/17 17:30 Vitamin B12 800 pg/mL (239-931) 02/01/17 07:00 25-OH Vitamin D Total < 12.8 NG/ML (30.0-100.0) L 02/01/17 07:00 Urine Color Light yellow (YELLOW) 01/31/17 17:30 Urine Appearance Sl cloudy (CLEAR) 01/31/17 17:30 Urine pH 7.5 (4.7-8.0) 01/31/17 17:30 Ur Specific [place] 1.010 (1.005-1.035) 01/31/17 17:30 Urine Protein Trace mg/dL (<30 mg/dL) H 01/31/17 17:30 Urine Glucose (UA) Negative mg/dL (NEGATIVE) 01/31/17 17:30 Urine Ketones 15 mg/dL (NEGATIVE) H 01/31/17 17:30 Urine Blood Large (NEGATIVE) H 01/31/17 17:30 Urine Nitrate Negative (NEGATIVE) 01/31/17 17:30 Urine Bilirubin Negative (NEGATIVE) 01/31/17 17:30 Urine Urobilinogen 0.2 E.U./dL (<1 E.U./dL) 01/31/17 17:30 Ur Leukocyte Esterase Moderate Patricia/uL (NEGATIVE) H 01/31/17 17:30 Urine RBC 2 - 5 /hpf (0-2) 01/31/17 17:30 Urine WBC 2 - 5 /hpf (0-6) 01/31/17 17:30 Ur Epithelial Cells 6 - 8 /hpf (0-5) 01/31/17 17:30 Urine Bacteria Few (NEG) 01/31/17 17:30 Urine HCG, Qual Negative (NEGATIVE) 01/31/17 17:30 IgG 1121.9 mg/dL (700.0-1600.0) 02/02/17 07:20 - Hospital Course Hospital Course: Patient is a 27 year old female with no significant past medical history presented to the ED for intractable diffuse abdominal pain for approximately 2 1 /2 weeks. Patient was [place] [facility] [place] end of [place]. At that time, patient was found to have elevated LFTs and a negative abdominal US. Patient was diagnosed with gastritis and discharged home. Patient was also seen at [facility] for the same complaint on 01/18. Patient followed up with GI outpatient, Dr. Isreal Brantley, who recommended trending LFTs and taking omeprazole. Abdominal pain got worse so she went back to [facility] on 01/29/17. On day of admission patient complained of abdominal pain, nausea, and vomiting. In the ED , labs and imaging were obtained. Abdominal US showed mild isoechoic gallbladder sludge. CT abdomen/pelvis showed mildly dilated small bowel loops with air contrast levels, no hepatic mass visualized, and loculated cystic collection. AST/ALT was 78/186. Pt was admitted for intractable nausea, vomiting , and elevated LFTs. During hospital course, transvaginal US was ordered due to findings on CT. Transvaginal US showed complex cystic lesion at the left adnexa measuring 6 cm. Due to these findings, patient was advised to follow up with OBGyn of her choice. GI was consulted and started patient on gastric and bowel regimen as abdominal pain could be due to gastritis, PUD, esophagitis, or constipation. GI stated that elevated LFT's were likely secondary to prolonged minocycline use. Diet was advanced as tolerated by GI. MRCP was ordered and showed no acute liver or biliary findings. Today, the patient was seen and examined at bedside. Pt denied any acute overnight events. Pt stated that nausea, vomiting, and abdominal pain had improved. Pt tolerated advance in diet well. As patient was medically stable, LFT's were downtrending, and symptoms improved, the patient was discharged. The patient was given prescriptions per GI recommendations and advised to follow up with GI as an outpatient. Patient was instructed to cease minocycline use and advance diet at has tolerated. Patient will also follow up with PMD and obgyn within 1 week. The patient acknowledged and agreed. Discharge Exam - Head Exam Head Exam: ATRAUMATIC, NORMAL INSPECTION, NORMOCEPHALIC - Eye Exam Eye Exam: EOMI, Normal appearance, PERRL - ENT Exam ENT Exam: Mucous Membranes Moist, Normal Exam - Neck Exam Neck exam: Full Rom - Respiratory Exam Respiratory Exam: Clear to PA & Lateral. absent: Accessory Muscle Use, Rales, Rhonchi, Wheezes, Respiratory Distress - Cardiovascular Exam Cardiovascular Exam: RRR, +S1, +S2. absent: Diastolic murmur, Gallop, Rubs, Systolic Murmur - GI/Abdominal Exam GI & Abdominal Exam: Normal Bowel Sounds, Soft. absent: Distended, Guarding, Rebound, Tenderness - Extremities Exam Extremities exam: normal inspection - Back Exam Back exam: NORMAL INSPECTION - Neurological Exam Neurological exam: Alert, Oriented x3 - Psychiatric Exam Psychiatric exam: Normal Affect, Normal Mood - Skin Skin Exam: Dry, Intact, Normal Color, Warm Discharge Plan - Discharge Medications Prescriptions: Ondansetron ODT [Zofran ODT] 4 mg PO Q6H PRN #10 odt PRN Reason: Nausea/Vomiting Pantoprazole Sodium [Protonix] 40 mg PO DAILY #15 ect Polyethylene Glycol 3350 [Miralax] 17 gm PO BID 7 Days packet Sucralfate [Carafate Oral Susp] 1 gm PO 0630,1130,1630,2200 7 Days udc - Follow Up Plan Condition: STABLE Disposition: HOME/ ROUTINE Instructions: Influenza Vaccine (DC), Acute Abdominal Pain (DC), Magnetic Resonance Cholangiopancreatography (DC) Additional Instructions: 1. Follow up with PMD within 1 week 2. Follow up with Dr. Gayle in clinic, call to schedule appt 3. Cease Minocycline use 4. Take Miralax twice a day, can take daily up to three times a day. Goal: 1 to 2 bowel movements per day 5. Take Protonix once a day 6. Take Carafate 4 times a day 7. Take Zofran as needed for nausea/vomiting 8. Follow up with obgyn due to complex ovarian cyst noted on pelvic ultrasound 9. If symptoms worsen, please return to ED Referrals: Karson Richard, [Primary Care Provider] - Irwin ROGERS,MD Cristel [Medical Doctor] - <Chandana Chatman - Last Filed: 02/02/17 15:40> Provider - Provider Date of Admission: 02/01/17 10:47 Attending physician: Chandana Chatman MD Primary care physician: [employer] Profile Required Hospital Course - Lab Results Lab Results: Most Recent Lab Values WBC 6.4 10^3/ul (4.5-11.0) 02/02/17 07:20 RBC 3.57 10^6/uL (3.5-6.1) 02/02/17 07:20 Hgb 9.7 g/dL (12.0-16.0) L 02/02/17 07:20 Hct 30.5 % (36.0-48.0) L 02/02/17 07:20 MCV 85.4 fl (80.0-105.0) 02/02/17 07:20 MCH 27.2 pg (25.0-35.0) 02/02/17 07:20 MCHC 31.8 g/dl (31.0-37.0) 02/02/17 07:20 RDW 13.5 % (11.5-14.5) 02/02/17 07:20 Plt Count 283 10^3/uL (120.0-450.0) 02/02/17 07:20 MPV 10.6 fl (7.0-11.0) 02/02/17 07:20 Gran % 58.3 % (50.0-68.0) 02/02/17 07:20 Lymph % (Auto) 33.5 % (22.0-35.0) 02/02/17 07:20 Mower % (Auto) 6.9 % (1.0-6.0) H 02/02/17 07:20 Eos % (Auto) 1.1 % (1.5-5.0) L 02/02/17 07:20 Baso % (Auto) 0.2 % (0.0-3.0) 02/02/17 07:20 Gran # 3.73 (1.4-6.5) 02/02/17 07:20 Lymph # 2.1 (1.2-3.4) 02/02/17 07:20 Mower # 0.4 (0.1-0.6) 02/02/17 07:20 Eos # 0.1 (0.0-0.7) 02/02/17 07:20 Baso # 0.01 K/mm3 (0.0-2.0) 02/02/17 07:20 PT 13.0 SECONDS (9.4-12.5) H 02/02/17 07:20 INR 1.18 (0.93-1.08) H 02/02/17 07:20 Sodium 140 mmol/L (132-148) 02/02/17 07:20 Potassium 3.4 mmol/L (3.6-5.0) L 02/02/17 07:20 Chloride 107 mmol/L (98-107) 02/02/17 07:20 Carbon Dioxide 27 mmol/L (21-33) 02/02/17 07:20 Anion Gap 9 (10-20) L 02/02/17 07:20 BUN 5 mg/dL (7-21) L 02/02/17 07:20 Creatinine 0.5 mg/dL (0.7-1.2) L 02/02/17 07:20 Est GFR ( Amer) > 60 02/02/17 07:20 Est GFR (Non-Af Amer) > 60 02/02/17 07:20 Random Glucose 76 mg/dL (70-110) 02/02/17 07:20 Calcium 8.3 mg/dL (8.4-10.5) L 02/02/17 07:20 Iron 76 ug/dL (45-180) 02/01/17 07:00 TIBC 227 ug/dL (265-497) L 02/01/17 07:00 % Saturation 34 % (20-55) 02/01/17 07:00 Ferritin 73.1 ng/mL 02/01/17 07:00 Total Bilirubin 1.5 mg/dL (0.2-1.3) H 02/02/17 07:20 GGT 67 U/L (8-78) 02/02/17 07:20 AST 64 U/L (14-36) H 02/02/17 07:20 ALT 131 U/L (7-56) H 02/02/17 07:20 Alkaline Phosphatase 67 U/L (38-126) 02/02/17 07:20 Total Protein 6.7 g/dL (5.8-8.3) 02/02/17 07:20 Albumin 3.8 g/dL (3.0-4.8) 02/02/17 07:20 Globulin 3.0 gm/dL 02/02/17 07:20 Albumin/Globulin Ratio 1.3 (1.1-1.8) 02/02/17 07:20 Lipase 166 U/L (23-300) 01/31/17 17:30 Vitamin B12 800 pg/mL (239-931) 02/01/17 07:00 25-OH Vitamin D Total < 12.8 NG/ML (30.0-100.0) L 02/01/17 07:00 Urine Color Light yellow (YELLOW) 01/31/17 17:30 Urine Appearance Sl cloudy (CLEAR) 01/31/17 17:30 Urine pH 7.5 (4.7-8.0) 01/31/17 17:30 Ur Specific [place] 1.010 (1.005-1.035) 01/31/17 17:30 Urine Protein Trace mg/dL (<30 mg/dL) H 01/31/17 17:30 Urine Glucose (UA) Negative mg/dL (NEGATIVE) 01/31/17 17:30 Urine Ketones 15 mg/dL (NEGATIVE) H 01/31/17 17:30 Urine Blood Large (NEGATIVE) H 01/31/17 17:30 Urine Nitrate Negative (NEGATIVE) 01/31/17 17:30 Urine Bilirubin Negative (NEGATIVE) 01/31/17 17:30 Urine Urobilinogen 0.2 E.U./dL (<1 E.U./dL) 01/31/17 17:30 Ur Leukocyte Esterase Moderate Patricia/uL (NEGATIVE) H 01/31/17 17:30 Urine RBC 2 - 5 /hpf (0-2) 01/31/17 17:30 Urine WBC 2 - 5 /hpf (0-6) 01/31/17 17:30 Ur Epithelial Cells 6 - 8 /hpf (0-5) 01/31/17 17:30 Urine Bacteria Few (NEG) 01/31/17 17:30 Urine HCG, Qual Negative (NEGATIVE) 01/31/17 17:30 IgG 1121.9 mg/dL (700.0-1600.0) 02/02/17 07:20 Attending/Attestation - Attestation I have personally seen and examined this patient.: Yes I have fully participated in the care of the patient.: Yes I have reviewed all pertinent clinical information, including history, physical exam and plan: Yes Notes (Text): 02/02/17 15:37 27 year old female who presented with complaint of abdominal pain with nausea/ vomiting for the past 2-3 weeks. [place] [facility] [place] [facility] revealed elevated LFTs (~500s-1000s). CT abd/pelvis and US abdomen were reviewed. LFTs have been trending down. She was seen and evaluated by GI who were suspecting possible drug induced transaminitis +/- gastritis. She was on protonix, pepcid and carafate. She was on miralax for constipation. Her symptoms improved and her diet was advanced. Pelvic sonogram showed complex cyst and she was recommended to follow up with gynecology. Patient is discharged home today to follow up with her pmd. Follow up with GI and gynecology. Monitor LFTs. Chandana Chatman MD Hospitalist.
== END 2017-02-02 14:30 | disposition home or self-care (01) ==
LOC: ED 16:25 → ERH 22:15 → 5RNO 02-01 → OBSVTOIN 02-01 10:47 → INTOOBSV 02-01 10:47
PROVIDERS: ADMIT Hospitalist; ATTEND Internal Medicine
DX: K29.70 Gastritis, unspecified, without bleeding (principal); N39.0 Urinary tract infection, site not specified; N83.209 Unspecified ovarian cyst, unspecified side; K59.00 Constipation, unspecified; K56.7 Ileus, unspecified; M48.54XA Collapsed vertebra, not elsewhere classified, thoracic region, initial encounter for fracture; R79.89 Other specified abnormal findings of blood chemistry
CPT/HCPCS: 36415; 71010; 74177; 74181; 76700; 76856; 80053; 80074; 81001; 82306; 82607; 82728; 82784; 82977; 83516; 83540; 83550; 83690; 84703; 85025; 85610; 86039; 86255; 87086; 93005; 96361; 96365; 96375; 96376; 99285; C9113; G0378; J2270; J2405; J2765; J7040; Q9966; Q9967